=== PATIENT | male | born 1985 | race Hispanic/Latino ===

== ENCOUNTER 2018-09-27 02:48 | Emergency (ER) | payer OTHER ==
[2018-09-27 02:58] VITALS: BMI 21.8
[2018-09-27 03:01] VITALS: RESP 18
[2018-09-27] MEDS ORDERED: Absorbable Gelatin Sponge Size 12-7 ONE (03:43)
--- NOTE | 2018-09-27 03:56 | ED PDOC ---
HPI: Skin/Bite Injury Time Seen by Provider: 09/27/18 03:14 Chief Complaint (Nursing): Abnormal Skin Integrity Chief Complaint (Provider): finger injury History Per: Patient History/Exam Limitations: no limitations Onset/Duration Of Symptoms: Hrs Additional Complaint(s): 33 yo M with no PMH who presents with finger injury that occurred today. Pt states that he was cooking this evening around 8pm using a brand new vegetable torres when he sliced a piece of his nail off as well as part of the skin on his middle finger. He placed pressure on it and elevated it but continued to bleed heavily for over an hour after multiple dressing changes so decided to come to ER for further evaluation. He admits to having tingling in finger. He did not injure any other fingers. He received a tetanus shot approximately 1 month ago. Past Medical History Reviewed: Historical Data, Nursing Documentation, Vital Signs Vital Signs: Last Vital Signs Temp 98.5 F 09/27/18 02:58 Pulse 116 H 09/27/18 02:58 Resp 18 09/27/18 02:58 BP 127/85 09/27/18 02:58 Pulse Ox 97 09/27/18 02:58 - Medical History PMH: No Chronic Diseases - Family History Family History: States: Unknown Family Hx - Home Medications Home Medications: Ambulatory Orders Medication Instructions Recorded RX: Ibuprofen [Motrin Tab] 600 mg PO Q6 PRN 5 Days tab 09/27/18 - Allergies Allergies/Adverse Reactions: Allergies Allergy/AdvReac Type Severity Reaction Status Date / Time No Known Allergies Allergy Verified 09/27/18 02:58 Review of Systems Constitutional: Negative for: Fever Musculoskeletal: Positive for: Hand Pain Neurological: Negative for: Confusion, Altered Mental Status, Headache Physical Exam - Reviewed Nursing Documentation Reviewed: Yes Vital Signs Reviewed: Yes - Physical Exam Appears: Positive for: Non-toxic Head Exam: Positive for: ATRAUMATIC Extremity: Positive for: Normal ROM (in DIP, PIP and wrist), Capillary Refill (< 2 sec), Other (Left 3rd digit with small superficial partial avulsion of distal nail and nail bed. No laceration. No active bleeding. ). Negative for: Deformity Neurologic/Psych: Positive for: Alert, Oriented - ECG O2 Sat by Pulse Oximetry: 97 Medical Decision Making Medical Decision Making: Left 3rd digit avulsion cleaned with saline under pressure (approx 100cc). No further bleeding noted. No laceration repair required. Wound re-dressed with bacitracin and bandage. Ibuprofen 600mg PO x 1 STable for d/c home with return instructions given. Disposition - Clinical Impression Clinical Impression: Fingernail avulsion, partial - Patient ED Disposition Is Patient to be Admitted: No Counseled Patient/Family Regarding: Diagnosis, Rx Given - Disposition Disposition: Routine/Home Disposition Time: 04:35 Condition: STABLE Additional Instructions: F/u with your primary care doctor as needed. Return to ER if you start to bleed profusely but place pressure on the wound first or call 911. Use bacitracin on wound. Prescriptions: RX: Ibuprofen [Motrin Tab] 600 mg PO Q6 PRN 5 Days tab PRN Reason: Pain, Moderate (4-7) Instructions: Nail Avulsion (DC) Forms: [facility] (Indonesian) Print Language: ROMANIAN
[2018-09-27 04:45] VITALS: BP 121/82; PULSE 94; TEMP 98.1
[2018-09-27 06:29] VITALS: O2SAT 97
== END 2018-09-27 04:35 | disposition home or self-care (01) ==
LOC: H.ER 02:48
DX: S61.313A Laceration without foreign body of left middle finger with damage to nail, initial encounter (principal); X58.XXXA Exposure to other specified factors, initial encounter; Y93.G1 Activity, food preparation and clean up